=== PATIENT | female | born 1955 | race Caucasian/White ===

== ENCOUNTER → 2016-12-14 | Outpatient (CLI) | payer BC ==
[2016-12-14 12:32] LABS: ALT 46 U/L (9-52); AST 40 U/L (14-36); Alkaline Phosphatase 72 U/L (38-126); Anion Gap 13 mmol/L; Blood Urea Nitrogen 23 mg/dL (7-17); Calcium 9.9 mg/dL (8.4-10.2); Carbon Dioxide 35 mmol/L (22-30); Chloride 97 mmol/L (98-107); Cholesterol 170 mg/dL (<200); Glucose 95 mg/dL (74-99); HDL Cholesterol 45 mg/dL (40-60); Non-African American GFR(MDRD) >60 (>60 ml/min/1.73 sqM); Potassium 3.4 mmol/L (3.5-5.1); Sodium 145 mmol/L (137-145); Total Bilirubin 0.9 mg/dL (0.2-1.3); Total Protein 8.2 g/dL (6.3-8.2); Triglycerides 170 mg/dL (<150)
== END | disposition home or self-care (01) ==
LOC: LABWHC1 11:38
PROVIDERS: ATTEND Internal Medicine
DX: I10 Essential (primary) hypertension (principal); E78.4 Other hyperlipidemia
CPT/HCPCS: 36415; 80053; 80061

== ENCOUNTER → 2017-06-14 | Outpatient (CLI) | payer OTHER ==
[2017-06-14 07:33] LABS: Basophils # (A) 0.1 k/uL (0-0.2); Basophils % (A) 1 %; CH 31.1; CHCM 34.5; Eosinophils # (A) 0.2 k/uL (0-0.7); Eosinophils % (A) 4 %; HCT 43.8 % (34.0-46.0); HDW 2.49; HGB 14.7 gm/dL (11.4-16.0); Luc # (Auto) 0.22; Luc % (Auto) 4; Lymphocytes # (A) 1.5 k/uL (1.0-4.8); Lymphocytes % (A) 26 %; MCH 30.5 pg (25.0-35.0); MCHC 33.6 g/dL (31.0-37.0); MCV 90.6 fL (80.0-100.0); Mean Platelet Volume 7.7; Monocytes # (A) 0.4 k/uL (0-1.0); Monocytes % (A) 8 %; Neutrophils # (A) 3.2 k/uL (1.3-7.7); Neutrophils % (A) 57 %; RBC 4.83 m/uL (3.80-5.40); RDW 13.9 % (11.5-15.5); WBC 5.7 k/uL (3.8-10.6); WBC (Perox) 5.63
[2017-06-14 09:34] LABS: ALT 42 U/L (9-52); AST 28 U/L (14-36); Alkaline Phosphatase 85 U/L (38-126); Anion Gap 8 mmol/L; Blood Urea Nitrogen 22 mg/dL (7-17); Calcium 9.5 mg/dL (8.4-10.2); Carbon Dioxide 34 mmol/L (22-30); Chloride 99 mmol/L (98-107); Cholesterol 210 mg/dL (<200); Glucose 111 mg/dL (74-99); HDL Cholesterol 47 mg/dL (40-60); Non-African American GFR(MDRD) >60 (>60 ml/min/1.73 sqM); Potassium 3.9 mmol/L (3.5-5.1); Sodium 141 mmol/L (137-145); Total Bilirubin 0.6 mg/dL (0.2-1.3); Total Protein 7.3 g/dL (6.3-8.2)
== END | disposition home or self-care (01) ==
LOC: LABWHC1 06:59
PROVIDERS: ATTEND Internal Medicine
DX: Z00.00 Encounter for general adult medical examination without abnormal findings (principal); I10 Essential (primary) hypertension; E03.9 Hypothyroidism, unspecified
CPT/HCPCS: 36415; 80053; 80061; 84443; 84481; 85025

== ENCOUNTER → 2017-06-26 | Outpatient (CLI) | payer OTHER ==
--- NOTE | 2017-06-26 11:19 | MM ---
Reason for exam: screening (asymptomatic). Last mammogram was performed 1 year and 1 month ago. History: Patient is postmenopausal, has history of other cancer at age 44, and is nulliparous. Family history of breast cancer in paternal cousin at age 30. Physical Findings: A clinical breast exam by your physician is recommended on an annual basis and results should be correlated with mammographic findings. MG Screening Mammo w CAD Bilateral CC and MLO view(s) were taken. Prior study comparison: June 08, 2016, bilateral MG 3d screening mammo w/cad. May 31, 2015, bilateral MG screening mammo w CAD. There are scattered fibroglandular densities. Finding: There are typically benign round calcifications in both breasts. There is no discrete abnormality. ASSESSMENT: Benign, BI-RAD 2 RECOMMENDATION: Routine screening mammogram of both breasts in 1 year.
== END | disposition home or self-care (01) ==
LOC: RADMAMWWP 07:05
PROVIDERS: ATTEND Internal Medicine
DX: Z12.31 Encounter for screening mammogram for malignant neoplasm of breast (principal)

== ENCOUNTER → 2017-12-15 | Outpatient (CLI) | payer OTHER ==
[2017-12-15 11:28] LABS: ALT 36 U/L (9-52); AST 25 U/L (14-36); Albumin 4.2 g/dL (3.5-5.0); Alkaline Phosphatase 72 U/L (38-126); Anion Gap 9 mmol/L; Blood Urea Nitrogen 23 mg/dL (7-17); Calcium 9.4 mg/dL (8.4-10.2); Carbon Dioxide 34 mmol/L (22-30); Chloride 100 mmol/L (98-107); Cholesterol 174 mg/dL (<200); Glucose 107 mg/dL (74-99); HDL Cholesterol 41 mg/dL (40-60); LDL Cholesterol,Calculated 98 mg/dL (0-99); Potassium 3.9 mmol/L (3.5-5.1); Sodium 143 mmol/L (137-145); Total Bilirubin 0.6 mg/dL (0.2-1.3); Triglycerides 176 mg/dL (<150)
== END | disposition home or self-care (01) ==
LOC: LABWHC1 10:08
PROVIDERS: ATTEND Internal Medicine
DX: E78.2 Mixed hyperlipidemia (principal); I10 Essential (primary) hypertension
CPT/HCPCS: 36415; 80053; 80061

== ENCOUNTER → 2018-09-05 | Outpatient (CLI) | payer OTHER ==
--- NOTE | 2018-09-06 08:57 | MM ---
Reason for exam: screening (asymptomatic). Last mammogram was performed 1 year and 2 months ago. History: Patient is postmenopausal, has history of other cancer at age 44, and is nulliparous. Family history of breast cancer in paternal cousin at age 30. Physical Findings: A clinical breast exam by your physician is recommended on an annual basis and results should be correlated with mammographic findings. MG Screening Mammo w CAD Bilateral CC and MLO view(s) were taken. Prior study comparison: June 26, 2017, bilateral MG screening mammo w CAD. June 08, 2016, bilateral MG 3d screening mammo w/cad. There are scattered fibroglandular densities. No significant changes when compared with prior studies. ASSESSMENT: Negative, BI-RAD 1 RECOMMENDATION: Routine screening mammogram of both breasts in 1 year.
== END | disposition home or self-care (01) ==
LOC: RADMAMWWP 07:21
PROVIDERS: ATTEND Internal Medicine
DX: Z12.31 Encounter for screening mammogram for malignant neoplasm of breast (principal)
CPT/HCPCS: 77067

== ENCOUNTER → 2020-06-04 | Outpatient (CLI) | payer BC ==
--- NOTE | 2020-06-09 09:11 | MM ---
Reason for exam: screening (asymptomatic). Last mammogram was performed 1 year and 9 months ago. History: Patient is postmenopausal, has history of other cancer at age 44, and is nulliparous. Family history of breast cancer in paternal cousin at age 30. Physical Findings: A clinical breast exam by your physician is recommended on an annual basis and results should be correlated with mammographic findings. MG Screening Mammo w CAD Bilateral CC and MLO view(s) were taken. Prior study comparison: September 05, 2018, bilateral MG screening mammo w CAD. June 26, 2017, bilateral MG screening mammo w CAD. There are scattered fibroglandular densities. No significant changes when compared with prior studies. ASSESSMENT: Benign, BI-RAD 2 RECOMMENDATION: Routine screening mammogram of both breasts in 1 year.
== END | disposition home or self-care (01) ==
LOC: RADMAMWWP 07:48
PROVIDERS: ATTEND Family Medicine
DX: Z12.31 Encounter for screening mammogram for malignant neoplasm of breast (principal)
CPT/HCPCS: 77067

== ENCOUNTER → 2021-08-03 | Outpatient (CLI) | payer BC ==
[2021-08-03 23:11] LABS: Basophils # (A) 0.04 X 10*3/uL (0.00-0.10); Basophils % (A) 0.8 %; Eosinophils # (A) 0.13 X 10*3/uL (0.04-0.35); Eosinophils % (A) 2.6 %; HCT 44.4 % (37.2-46.3); HGB 13.7 g/dL (12.0-15.0); Lymphocytes % (A) 32.3 %; MCH 29.6 pg (27.0-32.0); MCHC 30.9 g/dL (32.0-37.0); MCV 95.9 fL (80.0-97.0); Mean Platelet Volume 10.1 fL (9.5-12.2); Monocytes # (A) 0.69 X 10*3/uL (0.20-1.00); Monocytes % (A) 13.9 %; Neutrophils # (A) 2.45 X 10*3/uL (1.80-7.70); Neutrophils % (A) 49.6 %; Platelet Count 233 X 10*3/uL (140-440); RBC 4.63 X 10*6/uL (4.10-5.20); RDW 13.3 % (11.5-14.5); WBC 4.95 X 10*3/uL (4.50-10.00)
[2021-08-04 01:14] LABS: Erythrocyte Sedimentation Rate 16 mm/Hr (0-30)
[2021-08-04 02:43] LABS: C Reactive Protein 0.4 mg/dL (0.00-0.80)
== END | disposition home or self-care (01) ==
LOC: LABWHC1 14:27
PROVIDERS: ATTEND Ophthalmology
DX: H46.03 Optic papillitis, bilateral (principal)
CPT/HCPCS: 36415; 82947; 83036; 85025; 85652; 86140

== ENCOUNTER → 2021-10-06 | Outpatient (CLI) | payer BC | END | disposition home or self-care (01) | LOC: LABWHC1 12:44 | PROVIDERS: ATTEND Physician Assistant | DX: Z20.822 Contact with and (suspected) exposure to COVID-19 (principal) | CPT/HCPCS: 87635 ==

== ENCOUNTER → 2022-03-01 | Outpatient (CLI) | payer BC ==
--- NOTE | 2022-03-02 10:43 | MM ---
Reason for Exam: Screening (asymptomatic). Last mammogram was performed 1 year(s) and 9 month(s) ago. Patient History: Menarche at age 14. Patient has no children. Postmenopausal. Other cancer, age 44. Paternal cousin had breast cancer, age 30. Risk Values: Elena 5 year model risk: 1.8%. NCI Lifetime model risk: 7.2%. Prior Study Comparison: 06/26/2017 Bilateral Screening Mammogram, [facility]. 09/05/2018 Bilateral Screening Mammogram, [facility]. 06/04/2020 Bilateral Screening Mammogram, [facility]. Tissue Density: There are scattered fibroglandular densities. Findings: Analyzed By CAD. A few scattered benign-appearing round calcifications throughout both breasts are redemonstrated. There is no suspicious group of microcalcifications or new suspicious mass in either breast. Overall Assessment: Benign, BI-RAD 2 Management: Screening Mammogram of both breasts in 1 year. A clinical breast exam by your physician is recommended on an annual basis and results should be correlated with mammographic findings. Electronically signed and approved by: Iftikhar Yepez M.D.
== END | disposition home or self-care (01) ==
LOC: RADMAMWWP 08:20
PROVIDERS: ATTEND Family Medicine
DX: Z12.31 Encounter for screening mammogram for malignant neoplasm of breast (principal); Z78.0 Asymptomatic menopausal state; Z80.3 Family history of malignant neoplasm of breast
CPT/HCPCS: 77067

== ENCOUNTER → 2023-03-07 | Outpatient (CLI) | payer MEDICARE ==
--- NOTE | 2023-03-07 11:27 | BD ---
EXAMINATION TYPE: Axial Bone Density DATE OF EXAM: 03/07/2023 CLINICAL HISTORY: 67 years old Female. ICD-10 CODE: Z78.0 ASYMPTOMATIC MENOPAUSAL STATE Height: 61.7 in Weight: 258 lbs RISK FACTORS HISTORY OF: Active: yes Postmenopausal woman: age 50 MEDICATIONS: Thyroid Medications: yes Which medication: Levothyroxine How Lon+ years Additional Medications: calcium, vit d, high blood pressure meds, Additional History: skin cancer used a chemo cream EXAM MEASUREMENTS: Bone mineral densitometry was performed using the Omnidrone System. Bone mineral density as measured about the Lumbar spine is: ----- L1-L4(G/cm2): 1.789 T Score Values are as follows: ----- L1: 4.5 ----- L2: 5.0 ----- L3: 5.6 ----- L4: 5.0 ----- L1-L4: 5.1 Z Score Values are as follows: ----- L1: 4.9 ----- L2: 5.4 ----- L3: 6.0 ----- L4: 5.4 ----- L1-L4: 5.5 Bone mineral density has: Increased 9.2% since study of: 06/11/2012 Bone mineral density about the R hip (g/cm2): 1.515 Bone mineral density about the L hip (g/cm2): 1.631 T Score values are as follows: -----R Neck: 3.1 -----L Neck: 2.5 -----R Total: 4.0 -----L Total: 5.0 Z Score values are as follows: -----R Neck: 3.8 -----L Neck: 3.2 -----R Total: 4.4 -----L Total: 5.3 Bone mineral density has: Decreased -3.7% since study of: 06/11/2012 FRAX%s: The graph provided illustrates a 3.7% chance for a major osteoporotic fx and a 0.0% chance fo r the hips probability for fx in 10 years time. IMPRESSION: Normal (Values between +1 and -1 indicate normal bone mass). Consider repeating this study in 5 year s or sooner if there is some new clinical indication. NOTE: T-SCORE=SD OF THE YOUNG ADULT MEAN.
--- NOTE | 2023-03-07 14:42 | MM ---
Reason for Exam: Screening (asymptomatic). Last screening mammogram was performed 12 month(s) ago. Patient History: Menarche at age 14. Patient has no children. Postmenopausal. Other cancer, age 44. Paternal cousin had breast cancer, age 30. Risk Values: Elena 5 year model risk: 1.8%. NCI Lifetime model risk: 6.9%. Prior Study Comparison: 09/05/2018 Bilateral Screening Mammogram, [facility]. 06/04/2020 Bilateral Screening Mammogram, [facility]. 03/01/2022 Bilateral MG screening mammo w CAD, [facility]. Tissue Density: There are scattered fibroglandular densities. Findings: Analyzed By CAD. There is no suspicious group of microcalcifications or new suspicious mass in either breast. Benign-appearing round calcifications within both breasts. Stable chronic nodularity within the right breast. Overall Assessment: Benign, BI-RAD 2 Management: Screening Mammogram of both breasts in 1 year. A clinical breast exam by your physician is recommended on an annual basis and results should be correlated with mammographic findings. Electronically signed and approved by: Denver Salcido D.O.
== END | disposition home or self-care (01) ==
LOC: RADMAMWWP 10:12
PROVIDERS: ATTEND Family Medicine
DX: Z12.31 Encounter for screening mammogram for malignant neoplasm of breast (principal); Z78.0 Asymptomatic menopausal state
CPT/HCPCS: 77067; 77080

== ENCOUNTER → 2024-03-11 | Outpatient (CLI) | payer MEDICARE ==
--- NOTE | 2024-03-12 13:08 | MM ---
Reason for Exam: Screening (asymptomatic). Last screening mammogram was performed 12 month(s) ago. Patient History: Menarche at age 14. Patient has no children. Postmenopausal. Other cancer, age 44. Paternal cousin had breast cancer, age 30. Risk Values: Elena 5 year model risk: 1.9%. NCI Lifetime model risk: 6.7%. Prior Study Comparison: 06/04/2020 Bilateral Screening Mammogram, [facility]. 03/01/2022 Bilateral MG screening mammo w CAD, [facility]. 03/07/2023 Bilateral MG screening mammo w CAD, [facility]. Tissue Density: The breasts are heterogeneously dense, which may obscure small masses. Findings: Analyzed By CAD. There is no suspicious group of microcalcifications or new suspicious mass in either breast. Overall Assessment: Benign, BI-RAD 2 Management: Screening Mammogram of both breasts in 1 year. . Patient should continue monthly self-breast exams. A clinical breast exam by your physician is recommended on an annual basis. This exam should not preclude additional follow-up of suspicious palpable abnormalities. Note on Elena scores and lifetime risk: 1. A Elena score greater than 3% is considered moderate risk. If this is the case, consider specialist referral to assess eligibility for a risk reducing agent. 2. If overall lifetime risk for the development of breast cancer is 20% or higher, the patient may qualify for future screening with alternating mammogram and breast MRI. Electronically signed and approved by: Erich Alicea M.D. Radiologis
== END | disposition home or self-care (01) ==
LOC: RADMAMWWP 08:18
PROVIDERS: ATTEND Family Medicine
DX: Z12.31 Encounter for screening mammogram for malignant neoplasm of breast (principal); Z78.0 Asymptomatic menopausal state; Z80.3 Family history of malignant neoplasm of breast
CPT/HCPCS: 77063; 77067

== ENCOUNTER → 2025-03-12 | Outpatient (CLI) | payer MEDICARE ==
--- NOTE | 2025-03-12 10:38 | MM ---
Reason for Exam: Screening (asymptomatic). Last screening mammogram was performed 12 month(s) ago. Patient History: Menarche at age 14. Patient has no children. Postmenopausal. Other cancer, age 44. Paternal cousin had breast cancer, age 30. Risk Values: Elena 5 year model risk: 1.9%. NCI Lifetime model risk: 6.4%. Prior Study Comparison: 03/01/2022 Bilateral MG screening mammo w CAD, [facility]. 03/07/2023 Bilateral MG screening mammo w CAD, [facility]. 03/11/2024 Bilateral MG 3D screening mammo w/cad, [facility]. Tissue Density: There are scattered areas of fibroglandular density. Findings: Analyzed By CAD. There is no suspicious group of microcalcifications or new suspicious mass in either breast. A benign appearing lymph nodes are stable. Benign calcifications. Overall Assessment: Benign, BI-RAD 2 Management: Screening Mammogram of both breasts in 1 year. . Patient should continue monthly self-breast exams. A clinical breast exam by your physician is recommended on an annual basis. This exam should not preclude additional follow-up of suspicious palpable abnormalities. Note on Elena scores and lifetime risk: 1. A Elena score greater than 3% is considered moderate risk. If this is the case, consider specialist referral to assess eligibility for a risk reducing agent. 2. If overall lifetime risk for the development of breast cancer is 20% or higher, the patient may qualify for future screening with alternating mammogram and breast MRI. [facility], , 03/12/2025 10:34 AM. Electronically signed and approved by: Tristen Downs M.D. Radiologis
== END | disposition home or self-care (01) ==
LOC: RADMAMWWP 10:01
PROVIDERS: ATTEND Family Medicine
DX: Z12.31 Encounter for screening mammogram for malignant neoplasm of breast (principal); R92.323 Mammographic fibroglandular density, bilateral breasts; Z78.0 Asymptomatic menopausal state; Z80.3 Family history of malignant neoplasm of breast
CPT/HCPCS: 77063; 77067